=== PATIENT | male | born 1995 | race Caucasian/White ===

== ENCOUNTER 2016-11-27 13:39 | Emergency (ER) | payer BC ==
[2016-11-27 14:16] VITALS: BP 146/64
[2016-11-27] MEDS ORDERED: methylPREDNISolone 125 MG* 2 ML VIAL IM ONE (14:40)
[2016-11-27] MEDS ORDERED: Famotidine TAB* 20 MG PO ONE (14:41)
--- NOTE | 2016-11-28 22:34 | UC ---
Bite Injury/Animal HPI - HPI Summary HPI Summary: 21 YEAR OLD MALE PRESENTS WITH LEFT ARM RASH SECONDARY TO A BEE STING. - History of Current Complaint Chief Complaint: UCBiteInjury Stated Complaint: SWOLLEN ARM FROM BEE STING Time Seen by Provider: 11/27/16 14:37 Severity Currently: Moderate Severity Initially: Moderate Pain Intensity: 4 Pain Scale Used: 0-10 Numeric - 5 Onset/Duration: Sudden Onset Type of Bite: Animal - BEE Character: Puncture Associated Signs And Symptoms: Positive: Erythema - Allergies/Home Medications Allergies/Adverse Reactions: Allergies Allergy/AdvReac Type Severity Reaction Status Date / Time No Known Allergies Allergy Unverified 11/27/16 14:16 PMH/Surg Hx/FS Hx/Imm Hx Previously Healthy: Yes - Surgical History Surgical History: None - Social History Alcohol Use: None Substance Use Type: None Smoking Status (MU): Never Smoked Tobacco Review of Systems Constitutional: Negative Skin: Rash Eyes: Negative ENT: Negative Respiratory: Negative Cardiovascular: Negative Gastrointestinal: Negative Genitourinary: Negative Motor: Negative Neurovascular: Negative Musculoskeletal: Negative Neurological: Negative Psychological: Negative All Other Systems Reviewed And Are Negative: Yes Physical Exam Triage Information Reviewed: Yes Vital Signs: Initial Vital Signs Temp 37.0 C 11/27/16 14:11 Pulse 58 11/27/16 14:11 Resp 15 11/27/16 14:11 BP 146/64 11/27/16 14:11 Pulse Ox 100 11/27/16 14:11 Vital Signs Reviewed: Yes Eye Exam: Normal ENT Exam: Normal Dental Exam: Normal Neck exam: Normal Neck: Positive: 1 Respiratory Exam: Normal Cardiovascular Exam: Normal Abdominal Exam: Normal Musculoskeletal Exam: Normal Neurological Exam: Normal Psychological Exam: Normal Skin: Positive: rashes - RASH LEFT ARM Bite Injury Course/Dx - Differential Dx/Diagnosis Provider Diagnoses: RASH LEFT ARM. BEE STING Discharge - Discharge Plan Condition: Stable Disposition: HOME Prescriptions: Cephalexin CAP* [Keflex 500 CAP*] 500 mg PO TID #30 cap Epinephrine [Epipen 2-Chelsea] 0.3 mg IM ONCE #1 inj Famotidine TAB* [Pepcid 20 MG TAB*] 20 mg PO DAILY #30 tab Methylprednisolone [Medrol Dosepak 4 MG*] 4 mg PO .SEE CHELSEA INSTRUCTION #21 tab Triamcinolone 0.1% CREAM (NF) [Kenalog 0.1% Cream (NF)] 1 applic TOPICAL BID # 90 gm hydrOXYzine HCL TAB* [Atarax 25 MG TAB*] 25 mg PO TID PRN #30 tab PRN Reason: Itching Patient Education Materials: Insect Bite or Sting (ED) Referrals: Christofer Frankel MD [Primary Care Provider] -
== END 2016-11-27 15:10 | disposition home or self-care (01) ==
LOC: UCEAST 13:39
DX: T63.441A Toxic effect of venom of bees, accidental (unintentional), initial encounter (principal); Y92.9 Unspecified place or not applicable; R21 Rash and other nonspecific skin eruption
CPT/HCPCS: 96372; 99202; A9270-GY; G0463; J2930